=== PATIENT | female | born 1995 | race Caucasian/White ===

== ENCOUNTER 2017-03-05 14:52 | Emergency (ER) | payer OTHER ==
[~2017-03-05] VITALS: Ht 160 cm; Wt 60.8 kg
[2017-03-05] MEDS ORDERED: IRON50TA PO (15:17)
--- NOTE | 2017-03-05 15:54 | REP ---
Clinical: Trauma. Technique: AP, lateral, bilateral oblique views. Findings: The osseous structures and joint spaces are intact and normal. There is no evidence for acute fracture or dislocation. Surrounding soft tissues are unremarkable. No subcutaneous emphysema or radiodense foreign body. Impression: Normal examination. No acute fracture or dislocation. Signed by Vernon Key MD 03/05/2017 03:45 P
--- NOTE | 2017-03-05 15:55 | REP ---
Clinical: Trauma. Technique: AP, lateral, bilateral oblique views of the left wrist. Findings: The carpal bones, surrounding osseous structures, soft tissues, and joint spaces are normal. There is no evidence for acute fracture or dislocation. No subcutaneous emphysema or radiodense foreign body. Impression: Normal left wrist series. No acute fracture or dislocation Signed by Vernon Key MD 03/05/2017 03:46 P
[2017-03-05 16:15] VITALS: BP 12/79
== END 2017-03-05 16:23 | disposition home or self-care (01) ==
LOC: M ED 15:25
DX: S60.222A Contusion of left hand, initial encounter (principal); S60.212A Contusion of left wrist, initial encounter; V00.131A Fall from skateboard, initial encounter; Y92.830 Public park as the place of occurrence of the external cause; Y93.51 Activity, roller skating (inline) and skateboarding; Y99.8 Other external cause status; D50.9 Iron deficiency anemia, unspecified; F17.210 Nicotine dependence, cigarettes, uncomplicated; Z79.899 Other long term (current) drug therapy

== ENCOUNTER 2017-03-07 18:02 | Emergency (ER) | payer OTHER ==
[~2017-03-07] VITALS: Ht 160 cm; Wt 60.8 kg
[~2017-03-07 18:02] MED LIST: IRON50TA PO
[2017-03-07] MEDS ORDERED: IBUPROFEN 600 MG TAB PO ONE (20:15)
[2017-03-07 20:51] VITALS: BP 116/68
--- NOTE | 2017-03-07 21:37 | REP ---
Clinical: Pain. Technique: AP, lateral views of the left wrist. Findings: The carpal bones, surrounding osseous structures, soft tissues, and joint spaces are normal. There is no evidence for acute fracture or dislocation. No subcutaneous emphysema or radiodense foreign body. Impression: Normal wrist series. No acute fracture or dislocation. Signed by Vernon Key MD 03/07/2017 09:29 P
== END 2017-03-07 20:53 | disposition home or self-care (01) ==
LOC: M ED 19:29
DX: S63.502D Unspecified sprain of left wrist, subsequent encounter (principal); V00.131D Fall from skateboard, subsequent encounter; Y92.410 Unspecified street and highway as the place of occurrence of the external cause; Y93.51 Activity, roller skating (inline) and skateboarding; Y99.9 Unspecified external cause status; Z51.89 Encounter for other specified aftercare; F17.200 Nicotine dependence, unspecified, uncomplicated; Z79.899 Other long term (current) drug therapy